=== PATIENT | female | born 2000 | race Caucasian/White ===

== ENCOUNTER 2025-07-09 15:14 | Day surgery (SDC) | payer OTHER ==
[2025-07-09 15:29] VITALS: BMI 30.2
[2025-07-09 16:00] LABS: Hematocrit 33.1 % (34.9-44.5); Hemoglobin 11.5 g/dL (12.0-15.5); Mean Corpuscular Hemoglobin 30.7 pg (27.0-33.0); Mean Corpuscular Volume 88.3 fL (81.6-98.3); Platelet Count 173 10x3/uL (150-450); Red Blood Cell (RBC) Count 3.75 10x6/uL (3.90-5.03); White Blood Cell (WBC) Count 7.22 10x3/uL (3.5-10.5)
[2025-07-09 16:22] LABS: ALT (SGPT) 13 U/L (Less than 34); AST (SGOT) 25 U/L (11-34); Albumin 3.1 g/dL (3.1-4.5); Alkaline Phosphatase 147 U/L (40-110); Anion Gap 10 mmol/L (10-20); BUN (Urea Nitrogen) 10 mg/dL (7.0-18.7); Bilirubin, Total 0.3 mg/dL (0.3-1.2); Calc. Creatinine Clearance 140 mL/min (70-130); Calcium 9.1 mg/dL (7.8-10.44); Carbon Dioxide 22 mmol/L (22-29); Chloride 104 mmol/L (98-107); Globulin 3.3 g/dL (2.4-3.5); Glucose 83 mg/dL (70-105); Potassium 3.9 mmol/L (3.5-5.1); Sodium 132 mmol/L (136-145)
[2025-07-09 16:56] LABS: Protein, Urine Random Quant Less than 10 mg/dL (1-14)
== END 2025-07-09 17:00 | disposition home health service (06) ==
LOC: CSHLD/OP 15:14
PROVIDERS: ATTEND Obstetrics & Gynecology
DX: O99.891 Other specified diseases and conditions complicating pregnancy (principal); R03.0 Elevated blood-pressure reading, without diagnosis of hypertension; O47.1 False labor at or after 37 completed weeks of gestation; Z3A.38 38 weeks gestation of pregnancy; Z88.0 Allergy status to penicillin
CPT/HCPCS: 80053; 82570; 84156; 85027; 99284

== ENCOUNTER 2025-07-14 21:05 | Inpatient (IN) | payer OTHER ==
[2025-07-14] MEDS ORDERED: HYDROcodone/Acetaminophen 5/325 mg Tablet PO PRN ×2 (22:40)
[2025-07-14] MEDS ORDERED: Ondansetron PF 4 MG/2 ML Vial IVP PRN (22:40)
[2025-07-14] MEDS ORDERED: Lidocaine 1% (PF) 30 ML VIAL SC PRN (22:40)
[2025-07-14] MEDS ORDERED: hydrALAZINE 20 MG/ML VIAL SLOW IVP PRN (22:40)
[2025-07-14 23:01] VITALS: BMI 30.2
[2025-07-14 23:15] LABS: Hematocrit 32.3 % (34.9-44.5); Hemoglobin 11.3 g/dL (12.0-15.5); Mean Corpuscular Hemoglobin 31.0 pg (27.0-33.0); Mean Corpuscular Volume 88.5 fL (81.6-98.3); Platelet Count 161 10x3/uL (150-450); Red Blood Cell (RBC) Count 3.65 10x6/uL (3.90-5.03); White Blood Cell (WBC) Count 9.11 10x3/uL (3.5-10.5)
[2025-07-15] LABS: Hep B Surf Ag - L&D Non-Reactive S/CO (NonReactive)
[2025-07-15 00:01] LABS: Syphilis Antibody Index 0.09 S/CO (<1.00 Non-Reactive)
[2025-07-15] MEDS: Vancomycin 1 GM in Sodium Chloride 0.9% 250 ML 250 ML IVPB SCH (00:48)
[2025-07-15] MEDS: Oxytocin 30 units/NS 500 ML 500 ML IV SCH ×2 (00:53→09:28)
[2025-07-15] MEDS: fentaNYL/Ropivacaine Epidural 100 ML ONE (02:37)
[2025-07-15] MEDS ORDERED: diphenhydrAMINE 50 MG/ML VIAL IVP PRN (02:50)
[2025-07-15] MEDS ORDERED: Acetaminophen 325 MG TAB PO PRN (02:50)
[2025-07-15] MEDS ORDERED: Ondansetron PF 4 MG/2 ML Vial IVP PRN ×2 (02:50→13:09)
[2025-07-15] MEDS ORDERED: Communication Order-Pharmacy FS SCH (03:00)
[2025-07-15] MEDS ORDERED: fentaNYL 2 mcg/Ropivacaine 0.2% Epidural 100 ML CADD EPIDURAL SCH (03:00)
[2025-07-15] MEDS: Ibuprofen 800 MG TAB PO PRN (12:58)
[2025-07-15] MEDS ORDERED: Preparation H Ointment 28 GM TUBE PR PRN (13:09)
[2025-07-15] MEDS ORDERED: Milk Of Magnesia 30 ML UDCUP PO PRN (13:09)
[2025-07-15] MEDS ORDERED: Bisacodyl 10 MG SUPP PR PRN (13:09)
[2025-07-15] MEDS ORDERED: HYDROcodone/Acetaminophen 5/325 mg Tablet PO PRN ×2 (13:09)
[2025-07-15] MEDS ORDERED: hydrALAZINE 20 MG/ML VIAL SLOW IVP PRN (13:09)
[2025-07-15] MEDS ORDERED: diphenhydrAMINE 25 MG CAP PO PRN (13:09)
[2025-07-15] MEDS ORDERED: Lanolin Ointment 7 GM TUBE TOP PRN (13:09)
[2025-07-15] MEDS ORDERED: Oxytocin 30 units/NS 500 ML 500 ML IV SCH (13:09)
[2025-07-15] MEDS: Benzocaine-Menthol 82.5 ML CAN TOP PRN (16:16)
[2025-07-15] MEDS: Ferrous Sulfate 325 MG TAB PO SCH (16:36)
[2025-07-15] MEDS: Boostrix 0.5 ML (Tdap) VIAL (>/=7 yrs of age) IM ONE (16:36)
[2025-07-15] MEDS: Ibuprofen 800 MG TAB PO SCH (19:02)
[2025-07-17 07:34] VITALS: BP 116/72; TEMP 97.8
== END 2025-07-17 11:15 | disposition home or self-care (01) | DRG 807 ==
LOC: CSHLD 21:05 → CSHPP 07-15 16:20
PROVIDERS: ADMIT Obstetrics & Gynecology; ATTEND Obstetrics & Gynecology
PROC: 10E0XZZ Delivery of Products of Conception, External Approach (ICD-10-PCS; principal; 2025-07-15)
PROC: 0KQM0ZZ Repair Perineum Muscle, Open Approach (ICD-10-PCS; 2025-07-15)
PROC: 0UQMXZZ Repair Vulva, External Approach (ICD-10-PCS; 2025-07-15)
DX: O99.824 Streptococcus B carrier state complicating childbirth (principal); Z37.0 Single live birth; Z3A.39 39 weeks gestation of pregnancy; O70.1 Second degree perineal laceration during delivery; O71.82 Other specified trauma to perineum and vulva
CPT/HCPCS: 51702; 85027; 86780; 86850; 86900; 86901; 87340; J2590; J3373; J7050